=== PATIENT | female | born 1995 | race Two or more races ===

== ENCOUNTER 2023-05-23 00:13 | Emergency (ER) | payer MEDICAID ==
[~2023-05-23] VITALS: Ht 167.6 cm; Wt 89.5 kg
[~2023-05-23 00:13] MED LIST: AZIT-43 PO; BENZ200C64 PO
[2023-05-23 00:40] VITALS: BP 109/70; PULSE 84; RESP 20; TEMP 98.7; O2SAT 98
[2023-05-23] MEDS ORDERED: DexAMETHasone SOD PHOS 10MG/1ML VIAL INJ IM ONE (02:15)
[2023-05-23] MEDS ORDERED: AMOX500C2 PO (02:19)
== END 2023-05-23 02:56 | disposition home or self-care (01) ==
LOC: ER 00:13
DX: J02.0 Streptococcal pharyngitis (principal); J45.909 Unspecified asthma, uncomplicated; F12.10 Cannabis abuse, uncomplicated
CPT/HCPCS: 96372; 99283; J1100

== ENCOUNTER 2023-06-02 16:38 | Emergency (ER) | payer MEDICAID ==
[~2023-06-02] VITALS: Ht 167.6 cm; Wt 90.4 kg
[2023-06-02 16:38] VITALS: BP 104/72; PULSE 80; RESP 18; O2SAT 98
[~2023-06-02 16:38] MED LIST changes: +AMOX500C2 PO
[2023-06-02] MEDS ORDERED: MEDR5TAB28 PO (21:40)
[2023-06-02] MEDS ORDERED: ESTR2TAB5 PO (21:40)
== END 2023-06-02 21:40 | disposition home or self-care (01) ==
LOC: ER 16:38
DX: E05.90 Thyrotoxicosis, unspecified without thyrotoxic crisis or storm (principal); J45.909 Unspecified asthma, uncomplicated; F15.90 Other stimulant use, unspecified, uncomplicated; Z76.0 Encounter for issue of repeat prescription; Z79.899 Other long term (current) drug therapy
CPT/HCPCS: 36415; 84443